=== PATIENT | male | born 1995 | race Two or more races ===

== ENCOUNTER 2018-06-06 14:17 | Emergency (ER) | payer SELFPAY ==
[~2018-06-06] VITALS: Ht 172.7 cm; Wt 75.0 kg
[2018-06-06] MEDS ORDERED: LIDOCAINE HCL/PF 1% 10 MG/ML 5ML VIAL IJ ONE (14:45)
[2018-06-06] MEDS ORDERED: TETANUS, DIPHTHERIA, PERTUSSIS VAC/PF 0.5ML (>7YR OLD) IM ONE (14:45)
[2018-06-06] MEDS ORDERED: MORPHINE SULFATE 4 MG/ML CPJ (NOT FOR IM USE) IV STA (15:06)
[2018-06-06 18:01] VITALS: BP 116/76
== END 2018-06-06 18:18 | disposition home or self-care (01) ==
LOC: ER 15:31
DX: S81.012A Laceration without foreign body, left knee, initial encounter (principal); X58.XXXA Exposure to other specified factors, initial encounter; Y93.89 Activity, other specified; Y92.69 Other specified industrial and construction area as the place of occurrence of the external cause; Y99.8 Other external cause status
CPT/HCPCS: 12004; 73560; 86703; 90471; 90715; 96374; 99285; J2270; J3490; L1830; Z7610